=== PATIENT | female | born 1940 | race Caucasian/White ===

== ENCOUNTER 2017-01-14 08:53 | Outpatient (CLI) | payer OTHER ==
[~2017-01-14 08:53] MED LIST: NS 1,000 ML IV SCH
[2017-01-14 10:14] LABS: CREATININE 0.9 mg/dL (0.6-1.0); GLOMERULAR FILTRATION RATE > 60
[2017-01-14] MEDS ORDERED: NALOXONE HCL 0.4 MG/ML INJ ONE (11:12)
[2017-01-14] MEDS ORDERED: FLUMAZENIL 0.5 MG/5 ML MDV IVP ONE (11:12)
[2017-01-14] MEDS ORDERED: ONDANSETRON 4 MG/2 ML VIAL ONE (11:12)
[2017-01-14] MEDS ORDERED: fentaNYL 100 MCG/2 ML INJ ONE (11:13)
[2017-01-14] MEDS ORDERED: MIDAZOLAM 2 MG/2 ML VIAL ONE (11:13)
[2017-01-14] MEDS ORDERED: IOPAMIDOL (ISOVUE-300) 100 ML BTL ONE (12:05)
== END 2017-01-14 14:10 | disposition home or self-care (01) ==
LOC: FIMAGING 08:53
PROVIDERS: ATTEND Internal Medicine Hematology & Oncology
DX: Z12.89 Encounter for screening for malignant neoplasm of other sites (principal); C50.911 Malignant neoplasm of unspecified site of right female breast; F40.240 Claustrophobia
CPT/HCPCS: 71260; 74177; 78306; A9503; J2250; J3010; Q9967; J2310; J2405